=== PATIENT | female | born 2000 ===

== ENCOUNTER → 2024-11-13 | Outpatient (CLI) | payer OTHER ==
[2024-11-13 18:13] LABS: ALKALINE PHOSPHATASE 75 U/L (46-116); BUN 12 mg/dl (9-23); CHLORIDE 107 mmol/L (98-107); CHOLESTEROL 239 mg/dL (<200); FREE T4 1.05 ng/dl (0.89-1.76); LDL CHOLESTEROL 172 mg/dL (9-159); POTASSIUM 4.2 mmol/L (3.4-5.1); SGPT/ALT 11 U/L (5-49); TOTAL PROTEIN 7.3 gm/dL (6.0-8.0); TRIGLYCERIDES 111 mg/dl (<150)
[2024-11-14 15:06] LABS: THYROGLOBULIN ANTIBODY <1.0 IU/mL (0.0-0.9)
[2024-11-15 04:32] LABS: THYROID PEROXIDASE (TPO) AB <9 IU/mL (0-34)
== END | disposition home or self-care (01) ==
LOC: LAB 17:20
PROVIDERS: ATTEND Family Medicine
DX: E78.2 Mixed hyperlipidemia (principal); E03.9 Hypothyroidism, unspecified